=== PATIENT | female | born 1950 | race Caucasian/White ===

== ENCOUNTER 2020-07-04 09:38 | Inpatient (IN) | payer MEDICAID ==
[~2020-07-04] VITALS: Ht 165.1 cm; Wt 100.8 kg
[2020-07-04] MEDS ORDERED: SODIUM CHLORIDE 0.9% 1000ML BAG (SEPSIS BOLUS) IV ONE (10:15)
[2020-07-04 10:31] LABS: BG BASE EXCESS -4.8 mmol/L (-2.0-2.0); BG CARBOXYHEMOGLOBIN 0.3 % (0.5-1.5); BG DEOXYHEMOGLOBIN 5.2 % (0.0-5.0); BG FRACTION INSPIRED OXYGEN 21; BG HCO3 ACT 19.6 mmol/L (22.0-26.0); BG METHEMOGLOBIN 0.4 % (0.0-1.5); BG OXYGEN SATURATION 94.8 % (92.0-98.5); BG OXYHEMOGLOBIN 94.1 % (94.0-97.0); BG PCO2 32.9 mmHg (35.0-45.0); BG PH 7.393 (7.350-7.450); BG PO2 79.3 mmHg (75.0-100.0); BG SAMPLE SITE RIGHT RADIAL; BG TOTAL HEMOGLOBIN 7.2 g/dL (12.0-18.0); BG VENT MODE ROOM AIR
[2020-07-04 10:47] LABS: BASOPHILS % 0.7 % (0.0-2.0); EOSINOPHILS % 0.4 % (0.0-5.0); LYMPHOCYTES % 20.1 % (20.0-50.0); MEAN CORPUSCULAR HEMOGLOBIN 29.4 pg (28.0-32.0); MEAN CORPUSCULAR VOLUME 90.4 fL (81.0-99.0); MEAN PLATELET VOLUME 7.2 fl (7.4-10.4); NEUTROPHILS % 71.8 % (40.0-76.0); PLATELET 392 x1000/uL (130-400); RED BLOOD CELL COUNT 2.27 mill/uL (4.2-5.4); RED CELL DISTRIBUTION WIDTH 13.9 % (11.6-14.6)
[2020-07-04 10:48] LABS: HEMATOCRIT. 20.5 % (36.0-48.0); HEMOGLOBIN. 6.7 g/dL (12.0-16.0)
[2020-07-04 10:52] LABS: CHLORIDE 103 mEq/L (98-107)
[2020-07-04 10:56] LABS: ETHANOL BLOOD 19 mg/dL
[2020-07-04 11:00] LABS: PROTHROMBIN TIME 10.6 sec (9.6-11.0)
[2020-07-04] MEDS ORDERED: PIPERACILLIN/TAZ 3.375G PREMIX 50 ML IV ONE (11:15)
[2020-07-04] MEDS ORDERED: MAGNESIUM/ALUMINUM HYDROXIDE/SIMETHICONE 30ML UDC PO PRN (11:30)
[2020-07-04] MEDS ORDERED: NITROGLYCERIN 0.4MG TABLET SL SL PRN (11:30)
[2020-07-04] MEDS ORDERED: KETOROLAC 15MG/ML VIAL IV PRN (11:30)
[2020-07-04] MEDS ORDERED: ACETAMINOPHEN 325MG TABLET PO PRN ×2 (11:30)
[2020-07-04] MEDS ORDERED: IPRATROPIUM/ALBUTEROL 0.5-3(2.5)MG/3ML NEB NEB PRN (11:30)
[2020-07-04] MEDS ORDERED: GUAIFENESIN 200MG/10ML SUGAR FREE UDC PO PRN (11:30)
[2020-07-04] MEDS ORDERED: NA PHOS,M-B/NA PHOS,DI-BA ENEMA 118ML PR PRN (11:30)
[2020-07-04] MEDS ORDERED: CLONIDINE 0.1MG TABLET PO PRN (11:30)
[2020-07-04] MEDS ORDERED: DOCUSATE SODIUM 100MG CAPSULE PO PRN (11:30)
[2020-07-04] MEDS ORDERED: ONDANSETRON HCL 4MG/2ML INJ IV PRN (11:30)
[2020-07-04 12:43] LABS: TOTAL IRON BINDING CAPACITY 364 ug/dL (250-450)
[2020-07-04] MEDS: PANTOPRAZOLE SODIUM 40 MG/VIAL IV SCH (12:46)
[2020-07-04] MEDS ORDERED: LEVOFLOXACIN 500MG PREMIX 100 ML IV SCH (13:00)
[2020-07-04] MEDS: DEXT 5%/LACTATED RINGERS 1,000 ML IV SCH (13:20)
[2020-07-04 14:43] LABS: CREATINE KINASE 46 IU/L (26-192)
[2020-07-04 14:44] LABS: CREATINE KINASE MB FRACTION 1.1 ng/mL (0.5-3.6)
[2020-07-04 14:52] LABS: COLOR URINE RED (YELLOW); KETONES URINE 1+ (NEGATIVE); LEUKOCYTE ESTERASE URINE 2+ (NEGATIVE); NITRITE URINE POSITIVE (NEGATIVE); OCCULT BLOOD URINE 3+ (NEGATIVE); PROTEIN URINE 4+ (NEGATIVE); SPECIFIC GRAVITY URINE 1.018 (1.005-1.030); UROBILINOGEN URINE 0.2 E.U./dL (0.2-1.0)
[2020-07-04 14:53] LABS: CLARITY URINE TURBID (CLEAR)
[2020-07-04 15:16] LABS: *AMPHETAMINES SCREEN URINE NEGATIVE (NEGATIVE); *BARBITURATES SCREEN URINE NEGATIVE (NEGATIVE); *BENZODIAZEPINES SCREEN URINE NEGATIVE (NEGATIVE); *COCAINE SCREEN URINE NEGATIVE (NEGATIVE)
[2020-07-04 15:17] LABS: CANNABINOID URINE SCREEN NEGATIVE (NEGATIVE); METHADONE URINE SCREEN NEGATIVE (NEGATIVE); OPIATES URINE SCREEN NEGATIVE (NEGATIVE)
[2020-07-04 15:19] LABS: PHENCYCLIDINE URINE SCREEN NEGATIVE (NEGATIVE)
[2020-07-04 16:41] LABS: BASOPHILS % 0.4 % (0.0-2.0); HEMATOCRIT. 24.1 % (36.0-48.0); LYMPHOCYTES % 7.8 % (20.0-50.0); MEAN CORPUSCULAR HEMOGLOBIN 29.8 pg (28.0-32.0); MEAN CORPUSCULAR VOLUME 89.5 fL (81.0-99.0); MEAN PLATELET VOLUME 7.2 fl (7.4-10.4); MONOCYTES % 5.7 % (2.0-8.0); NEUTROPHILS % 86.1 % (40.0-76.0); PLATELET 274 x1000/uL (130-400); RED BLOOD CELL COUNT 2.69 mill/uL (4.2-5.4)
[2020-07-04 21:01] LABS: FOLIC ACID (FOLATE) SERUM > 20.00 ng/mL (>5.38); VITAMIN B12 SERUM > 2000.0 pg/mL (211-911)
[2020-07-04 21:52] VITALS: BP_SYST 148; BP_SYST 157; BP_DIAS 43; BP_DIAS 78
[2020-07-04 23:52] VITALS: BP 170/58
[2020-07-05] VITALS (13 sets, daily range): BP systolic 106–186; BP diastolic 54–81
[2020-07-05 00:17] LABS: CREATINE KINASE 47 IU/L (26-192)
[2020-07-05 00:18] LABS: CREATINE KINASE MB FRACTION 1.1 ng/mL (0.5-3.6)
[2020-07-05] MEDS: DEXT 5%/LACTATED RINGERS 1,000 ML IV SCH ×2 (00:22→14:50)
[2020-07-05 00:36] LABS: HEMATOCRIT 24.7 % (36.0-48.0); HEMOGLOBIN 8.4 g/dL (12.0-16.0)
[2020-07-05] MEDS ORDERED: BIOTIN PO (03:26)
[2020-07-05] MEDS ORDERED: ZINC PO (03:26)
[2020-07-05] MEDS ORDERED: TRYPTOPHAN PO (03:26)
[2020-07-05] MEDS ORDERED: VIT D 3 PO (03:26)
[2020-07-05] MEDS ORDERED: ASCO-339 PO (03:26)
[2020-07-05] MEDS ORDERED: B COMPLEX PO (03:26)
[2020-07-05 07:01] LABS: BASOPHILS % 0.4 % (0.0-2.0); EOSINOPHILS % 0.3 % (0.0-5.0); HEMATOCRIT. 21.9 % (36.0-48.0); HEMOGLOBIN. 7.3 g/dL (12.0-16.0); LYMPHOCYTES % 13.3 % (20.0-50.0); MEAN CORPUSCULAR HEMOGLOBIN 29.7 pg (28.0-32.0); MEAN CORPUSCULAR VOLUME 89.1 fL (81.0-99.0); MONOCYTES % 10.5 % (2.0-8.0); NEUTROPHILS % 75.5 % (40.0-76.0); PLATELET 256 x1000/uL (130-400); RED BLOOD CELL COUNT 2.46 mill/uL (4.2-5.4)
[2020-07-05 07:26] LABS: CHLORIDE 108 mEq/L (98-107)
[2020-07-05 07:39] LABS: PHOSPHORUS 2.4 mg/dL (2.5-4.9)
[2020-07-05] MEDS ORDERED: CEFTRIAXONE 1 G PREMIX 50 ML IV SCH (09:00)
[2020-07-05] MEDS: PANTOPRAZOLE SODIUM 40 MG/VIAL IV SCH (10:58)
[2020-07-05] MEDS: CEFTRIAXONE 1,000 MG in DEXTROSE 5% WATER 50 ML IV SCH (10:59)
[2020-07-05] MEDS: IRON SUCROSE COMPLEX 100 MG/5 ML ML IV SCH (14:49)
[2020-07-05] MEDS ORDERED: LEVOFLOXACIN 500MG PREMIX 100 ML IV SCH (16:00)
[2020-07-05] MEDS: ZOLPIDEM TARTRATE 5MG TABLET PO PRN (20:57)
[2020-07-06] VITALS (18 sets, daily range): BP systolic 112–149; BP diastolic 48–87
[2020-07-06] MEDS: DEXT 5%/LACTATED RINGERS 1,000 ML IV SCH ×2 (03:45→16:18)
[2020-07-06] MEDS ORDERED: MIDAZOLAM HCL 2 MG/2 ML VIAL ONE (07:24)
[2020-07-06] MEDS ORDERED: PROPOFOL 200MG/20ML VIAL IV ONE ×2 (07:24→08:17)
[2020-07-06] MEDS ORDERED: FENTANYL CITRATE/PF 50MCG/ML 2ML VIAL ONE (07:24)
[2020-07-06] MEDS ORDERED: DEXAMETHASONE 4MG/ML 1ML VIAL ONE (07:55)
[2020-07-06] MEDS ORDERED: ONDANSETRON HCL 4MG/2ML INJ ONE (08:17)
[2020-07-06] MEDS ORDERED: LABETALOL 5MG/ML SYR 20 MG/4 ML SYRINGE IV PRN (08:30)
[2020-07-06] MEDS ORDERED: MEPERIDINE HCL/PF 25MG/ML CPJ IV PRN (08:30)
[2020-07-06] MEDS ORDERED: HYDROMORPHONE HCL/PF 2MG/ML CPJ IV PRN (08:30)
[2020-07-06] MEDS ORDERED: ONDANSETRON HCL 4MG/2ML INJ IV PRN (08:30)
[2020-07-06] MEDS: PANTOPRAZOLE SODIUM 40 MG/VIAL IV SCH (08:47)
[2020-07-06] MEDS: IRON SUCROSE COMPLEX 100 MG/5 ML ML IV SCH (09:00)
[2020-07-06 11:52] LABS: HEMATOCRIT 22.3 % (36.0-48.0); HEMOGLOBIN 7.2 g/dL (12.0-16.0)
[2020-07-06] MEDS: CEFTRIAXONE 1,000 MG in DEXTROSE 5% WATER 50 ML IV SCH (11:57)
[2020-07-06] MEDS: ZOLPIDEM TARTRATE 5MG TABLET PO PRN (21:15)
[2020-07-06] MEDS: LEVOFLOXACIN 500MG PREMIX 100 ML IV SCH (21:15)
[2020-07-07] VITALS (15 sets, daily range): BP systolic 111–174; BP diastolic 40–82
[2020-07-07 00:25] LABS: HEMATOCRIT 21.7 % (36.0-48.0)
[2020-07-07] MEDS: DEXT 5%/LACTATED RINGERS 1,000 ML IV SCH ×2 (05:50→19:49)
[2020-07-07 08:31] LABS: HEMATOCRIT 23.3 % (36.0-48.0); HEMOGLOBIN 7.7 g/dL (12.0-16.0)
[2020-07-07] MEDS: PANTOPRAZOLE SODIUM 40 MG/VIAL IV SCH (09:35)
[2020-07-07] MEDS: IRON SUCROSE COMPLEX 100 MG/5 ML ML IV SCH (09:35)
[2020-07-07] MEDS: CEFTRIAXONE 1,000 MG in DEXTROSE 5% WATER 50 ML IV SCH (10:54)
[2020-07-07] MEDS: LORAZEPAM 0.5MG TABLET PO PRN (10:54)
[2020-07-07 11:55] LABS: HEMATOCRIT 25.8 % (36.0-48.0); HEMOGLOBIN 8.3 g/dL (12.0-16.0)
[2020-07-07] MEDS: LEVOFLOXACIN 500MG PREMIX 100 ML IV SCH (16:44)
[2020-07-07] MEDS: ZOLPIDEM TARTRATE 5MG TABLET PO PRN (21:50)
[2020-07-08] VITALS (12 sets, daily range): BP systolic 122–167; BP diastolic 62–99
[2020-07-08 06:51] LABS: HEMATOCRIT 25.7 % (36.0-48.0); HEMOGLOBIN 8.2 g/dL (12.0-16.0)
[2020-07-08] MEDS: DEXT 5%/LACTATED RINGERS 1,000 ML IV SCH (09:05)
[2020-07-08] MEDS: PANTOPRAZOLE SODIUM 40 MG/VIAL IV SCH (09:05)
[2020-07-08] MEDS: LORAZEPAM 0.5MG TABLET PO PRN (09:22)
[2020-07-08] MEDS: CEFTRIAXONE 1,000 MG in DEXTROSE 5% WATER 50 ML IV SCH (11:07)
[2020-07-08] MEDS: ZOLPIDEM TARTRATE 5MG TABLET PO PRN (21:51)
[2020-07-09] VITALS (10 sets, daily range): BP systolic 115–157; BP diastolic 56–82
[2020-07-09] MEDS: PANTOPRAZOLE SODIUM 40 MG/VIAL IV SCH (08:43)
[2020-07-09] MEDS: AMLODIPINE 5MG TABLET PO SCH (08:44)
[2020-07-09] MEDS: CEFTRIAXONE 1,000 MG in DEXTROSE 5% WATER 50 ML IV SCH (12:18)
[2020-07-09] MEDS: ZOLPIDEM TARTRATE 5MG TABLET PO PRN (22:05)
[2020-07-10 00:04] VITALS: BP 118/59
[2020-07-10 08:00] VITALS: BP 153/74
[2020-07-10] MEDS: PANTOPRAZOLE SODIUM 40 MG/VIAL IV SCH (08:44)
[2020-07-10] MEDS: AMLODIPINE 5MG TABLET PO SCH (08:44)
[2020-07-10 12:00] VITALS: BP 153/70
[2020-07-10 13:39] VITALS: BP 133/70
== END 2020-07-10 15:15 | disposition home or self-care (01) | DRG 446 ==
LOC: ER 09:38 → 3WST 11:07 → ENRESERV 19:36 → 3WST 07-08 22:09 → 6EST 07-10 01:55
PROVIDERS: ADMIT Internal Medicine; ATTEND Internal Medicine
PROC: 02HV33Z Insertion of Infusion Device into Superior Vena Cava, Percutaneous Approach (ICD-10-PCS; 2020-07-04)
PROC: B548ZZA Ultrasonography of Superior Vena Cava, Guidance (ICD-10-PCS; 2020-07-04)
PROC: 30233M1 Transfusion of Nonautologous Plasma Cryoprecipitate into Peripheral Vein, Percutaneous Approach (ICD-10-PCS; 2020-07-04)
PROC: 30233N1 Transfusion of Nonautologous Red Blood Cells into Peripheral Vein, Percutaneous Approach (ICD-10-PCS; 2020-07-05)
PROC: 0TBB8ZZ Excision of Bladder, Via Natural or Artificial Opening Endoscopic (ICD-10-PCS; principal; 2020-07-06)
PROC: 0T7D8ZZ Dilation of Urethra, Via Natural or Artificial Opening Endoscopic (ICD-10-PCS; 2020-07-06)
PROC: 0TCB8ZZ Extirpation of Matter from Bladder, Via Natural or Artificial Opening Endoscopic (ICD-10-PCS; 2020-07-06)
DX: C67.9 Malignant neoplasm of bladder, unspecified (principal); A41.9 Sepsis, unspecified organism; R57.8 Other shock; R57.1 Hypovolemic shock; E44.1 Mild protein-calorie malnutrition; E83.51 Hypocalcemia; F10.10 Alcohol abuse, uncomplicated; D63.0 Anemia in neoplastic disease; N13.30 Unspecified hydronephrosis; R65.20 Severe sepsis without septic shock; G90.8 Other disorders of autonomic nervous system; Y90.9 Presence of alcohol in blood, level not specified; I44.7 Left bundle-branch block, unspecified; I10 Essential (primary) hypertension; Z20.822 Contact with and (suspected) exposure to COVID-19; R31.0 Gross hematuria; D62 Acute posthemorrhagic anemia
CPT/HCPCS: 36415; 36600; 71045; 74176; 76856; 76937; 80053; 80305; 80320; 81003; 82375; 82550; 82553; 82607; 82746; 82805; 83540; 83550; 83605; 83735; 83880; 84100; 84145; 84484; 85014; 85018; 85025; 85379; 86850; 86900; 86920; 86927; 87426; 88307; 93005; 93306; 93970; 99291; A6261; C1725; C9113; J0696; J1100; J1956; J2250; J2405; J2543; J2704; J3010; J7030; J7040; J7060; P9016; P9017; P9021; G0480

== ENCOUNTER 2020-12-28 13:11 | Inpatient (IN) | payer OTHER ==
[~2020-12-28] VITALS: Ht 165.1 cm; Wt 90.7 kg
[~2020-12-28 13:11] MED LIST: ASCO-339 PO; ATOR20TA65 MT; B COMPLEX PO; BIOTIN PO; TRYPTOPHAN PO; VIT D 3 PO; ZINC PO
[2020-12-28 14:58] LABS: BASOPHILS % 0.7 % (0.0-2.0); EOSINOPHILS % 0.6 % (0.0-5.0); LYMPHOCYTES % 8.3 % (20.0-50.0); MEAN CORPUSCULAR HEMOGLOBIN 25.3 pg (28.0-32.0); MEAN CORPUSCULAR VOLUME 80.6 fL (81.0-99.0); MEAN PLATELET VOLUME 7.3 fl (7.4-10.4); MONOCYTES % 5.7 % (2.0-8.0); NEUTROPHILS % 84.7 % (40.0-76.0); PLATELET 583 x1000/uL (130-400); RED BLOOD CELL COUNT 2.11 mill/uL (4.2-5.4); RED CELL DISTRIBUTION WIDTH 16.8 % (11.6-14.6)
[2020-12-28 15:06] LABS: PROTHROMBIN TIME 10.6 sec (9.6-11.0)
[2020-12-28 15:07] LABS: CHLORIDE 107 mEq/L (98-107)
[2020-12-28 15:08] LABS: HEMOGLOBIN. 5.4 g/dL (12.0-16.0)
[2020-12-28 15:40] LABS: CLARITY URINE TURBID (CLEAR); COLOR URINE RED (YELLOW); KETONES URINE 2+ (NEGATIVE); LEUKOCYTE ESTERASE URINE 2+ (NEGATIVE); NITRITE URINE POSITIVE (NEGATIVE); OCCULT BLOOD URINE 3+ (NEGATIVE); PH URINE 5.5 (4.5-8.0); PROTEIN URINE 3+ (NEGATIVE); UROBILINOGEN URINE 0.2 E.U./dL (0.2-1.0)
[2020-12-28] MEDS ORDERED: CEFTRIAXONE 1 G PREMIX 50 ML IV ONE (16:15)
[2020-12-28] MEDS ORDERED: DOCUSATE SODIUM 100MG CAPSULE PO PRN (18:45)
[2020-12-28] MEDS ORDERED: IPRATROPIUM/ALBUTEROL 0.5-3(2.5)MG/3ML NEB HHN PRN (18:45)
[2020-12-28] MEDS ORDERED: HYDROCODONE/ACETAMINOPHEN 5/325MG TABLET PO PRN (18:45)
[2020-12-28] MEDS ORDERED: CLONIDINE 0.1MG TABLET PO PRN (18:45)
[2020-12-28] MEDS ORDERED: ONDANSETRON HCL 4MG/2ML INJ IV PRN (18:45)
[2020-12-28 20:44] VITALS: BP 153/74
[2020-12-28] MEDS: ACETAMINOPHEN 325MG TABLET PO PRN (20:54)
[2020-12-28 22:11] VITALS: BP 148/79
[2020-12-28 22:44] VITALS: BP 126/68
[2020-12-29] VITALS (17 sets, daily range): BP systolic 131–158; BP diastolic 64–94
[2020-12-29 07:24] LABS: BASOPHILS % 0.2 % (0.0-2.0); HEMATOCRIT. 23.5 % (36.0-48.0); LYMPHOCYTES % 7.2 % (20.0-50.0); MEAN CORPUSCULAR HEMOGLOBIN 26.7 pg (28.0-32.0); MEAN CORPUSCULAR VOLUME 80.6 fL (81.0-99.0); MEAN PLATELET VOLUME 7.1 fl (7.4-10.4); MONOCYTES % 12.6 % (2.0-8.0); PLATELET 471 x1000/uL (130-400); RED BLOOD CELL COUNT 2.92 mill/uL (4.2-5.4)
[2020-12-29 07:41] LABS: HEMOGLOBIN. 7.8 g/dL (12.0-16.0)
[2020-12-29] MEDS ORDERED: NALOXONE HCL 0.4MG/ML VIAL IV PRN (13:00)
[2020-12-29] MEDS: ACETAMINOPHEN 325MG TABLET PO PRN ×2 (14:44→22:25)
[2020-12-29] MEDS ORDERED: ZOLPIDEM TARTRATE 5MG TABLET PO PRN (16:45)
[2020-12-29] MEDS: CEFTRIAXONE 1,000 MG in DEXTROSE 5% WATER 50 ML IV SCH (16:46)
[2020-12-29 19:30] LABS: HEMATOCRIT 21.7 % (36.0-48.0); HEMOGLOBIN 7.4 g/dL (12.0-16.0)
[2020-12-29] MEDS ORDERED: VANCOMYCIN 1500MG in DEXTROSE 5% WATER 250ML IV SCH (20:00)
[2020-12-30] VITALS (28 sets, daily range): BP systolic 109–175; BP diastolic 58–104
[2020-12-30 07:12] LABS: HEMATOCRIT 25.6 % (36.0-48.0); HEMOGLOBIN 8.6 g/dL (12.0-16.0)
[2020-12-30] MEDS: ACETAMINOPHEN 325MG TABLET PO PRN ×2 (11:25→21:11)
[2020-12-30 12:08] LABS: HEMATOCRIT 24.7 % (36.0-48.0); HEMOGLOBIN 8.4 g/dL (12.0-16.0)
[2020-12-30] MEDS ORDERED: LIDOCAINE HCL 1% 20ML VIAL (Pyxis) INJ ONE (15:12)
[2020-12-30] MEDS ORDERED: FENTANYL CITRATE/PF 50MCG/ML 2ML VIAL ONE (15:13)
[2020-12-30] MEDS ORDERED: IOHEXOL-300 100 ML BOTTLE ONE (15:13)
[2020-12-30] MEDS ORDERED: MIDAZOLAM HCL 2 MG/2 ML VIAL ONE (15:14)
[2020-12-30] MEDS ORDERED: CEFAZOLIN 1000MG PREMIX 0 ML IV ONE (15:14)
[2020-12-30] MEDS ORDERED: FENTANYL CITRATE/PF 50MCG/ML 2ML VIAL IV NR (16:15)
[2020-12-30] MEDS: CEFTRIAXONE 1,000 MG in DEXTROSE 5% WATER 50 ML IV SCH (17:10)
[2020-12-30] MEDS: AMPICILLIN SOD/SULBACTAM NA 3 G in SODIUM CHLORIDE 0.9% 100 ML IV SCH (19:49)
[2020-12-30 20:31] LABS: HEMATOCRIT 23.3 % (36.0-48.0); HEMOGLOBIN 8.1 g/dL (12.0-16.0)
[2020-12-30] MEDS: LORAZEPAM 0.5MG TABLET PO PRN (21:11)
[2020-12-31] VITALS (12 sets, daily range): BP systolic 110–156; BP diastolic 45–79
[2020-12-31 06:28] LABS: BASOPHILS % 0.5 % (0.0-2.0); EOSINOPHILS % 1.4 % (0.0-5.0); HEMOGLOBIN. 7.7 g/dL (12.0-16.0); LYMPHOCYTES % 10.6 % (20.0-50.0); MEAN CORPUSCULAR HEMOGLOBIN 27.4 pg (28.0-32.0); MEAN CORPUSCULAR VOLUME 82.3 fL (81.0-99.0); MEAN PLATELET VOLUME 7.3 fl (7.4-10.4); NEUTROPHILS % 77.5 % (40.0-76.0); PLATELET 446 x1000/uL (130-400)
[2020-12-31] MEDS: AMPICILLIN SOD/SULBACTAM NA 3 G in SODIUM CHLORIDE 0.9% 100 ML IV SCH ×2 (07:51→19:38)
[2020-12-31] MEDS ORDERED: VANCOMYCIN 1 G PREMIX 200 ML IV SCH (08:00)
[2020-12-31] MEDS: ACETAMINOPHEN 325MG TABLET PO PRN ×2 (11:56→22:12)
[2020-12-31] MEDS: LORAZEPAM 0.5MG TABLET PO PRN (21:38)
[2021-01-01] VITALS (16 sets, daily range): BP systolic 111–157; BP diastolic 42–96
[2021-01-01 07:22] LABS: BASOPHILS % 0.4 % (0.0-2.0); EOSINOPHILS % 3.8 % (0.0-5.0); LYMPHOCYTES % 14.3 % (20.0-50.0); MEAN CORPUSCULAR HEMOGLOBIN 27.1 pg (28.0-32.0); MEAN CORPUSCULAR VOLUME 82.5 fL (81.0-99.0); MEAN PLATELET VOLUME 7.2 fl (7.4-10.4); MONOCYTES % 11.2 % (2.0-8.0); NEUTROPHILS % 70.3 % (40.0-76.0); PLATELET 445 x1000/uL (130-400); RED CELL DISTRIBUTION WIDTH 17.1 % (11.6-14.6)
[2021-01-01] MEDS: AMPICILLIN SOD/SULBACTAM NA 3 G in SODIUM CHLORIDE 0.9% 100 ML IV SCH ×2 (07:54→21:04)
[2021-01-01 09:29] LABS: HEMATOCRIT. 20.6 % (36.0-48.0); HEMOGLOBIN. 6.8 g/dL (12.0-16.0)
[2021-01-01] MEDS ORDERED: AMOX-494 MT ×2 (20:41)
[2021-01-01] MEDS: LORAZEPAM 0.5MG TABLET PO PRN (21:42)
[2021-01-02] VITALS (15 sets, daily range): BP systolic 119–160; BP diastolic 56–95
[2021-01-02 07:27] LABS: BASOPHILS % 0.7 % (0.0-2.0); EOSINOPHILS % 6.2 % (0.0-5.0); HEMATOCRIT. 21.7 % (36.0-48.0); HEMOGLOBIN. 7.5 g/dL (12.0-16.0); LYMPHOCYTES % 14.2 % (20.0-50.0); MEAN CORPUSCULAR HEMOGLOBIN 28.4 pg (28.0-32.0); MEAN CORPUSCULAR VOLUME 82.3 fL (81.0-99.0); MONOCYTES % 12.7 % (2.0-8.0); NEUTROPHILS % 66.2 % (40.0-76.0); PLATELET 444 x1000/uL (130-400); RED BLOOD CELL COUNT 2.63 mill/uL (4.2-5.4); RED CELL DISTRIBUTION WIDTH 16.7 % (11.6-14.6)
[2021-01-02] MEDS: AMPICILLIN SOD/SULBACTAM NA 3 G in SODIUM CHLORIDE 0.9% 100 ML IV SCH ×2 (07:48→20:50)
[2021-01-02] MEDS: ACETAMINOPHEN 325MG TABLET PO PRN ×2 (17:17→23:09)
[2021-01-02] MEDS ORDERED: LORAZEPAM 0.5MG TABLET PO PRN (21:15)
[2021-01-03 04:00] VITALS: BP 143/70
[2021-01-03 07:16] LABS: BASOPHILS % 0.5 % (0.0-2.0); EOSINOPHILS % 5.1 % (0.0-5.0); HEMATOCRIT. 22.2 % (36.0-48.0); HEMOGLOBIN. 7.4 g/dL (12.0-16.0); LYMPHOCYTES % 14.2 % (20.0-50.0); MEAN CORPUSCULAR HEMOGLOBIN 27.7 pg (28.0-32.0); MEAN CORPUSCULAR VOLUME 82.7 fL (81.0-99.0); MEAN PLATELET VOLUME 6.6 fl (7.4-10.4); MONOCYTES % 10.4 % (2.0-8.0); NEUTROPHILS % 69.8 % (40.0-76.0); PLATELET 438 x1000/uL (130-400); RED BLOOD CELL COUNT 2.68 mill/uL (4.2-5.4); RED CELL DISTRIBUTION WIDTH 17.4 % (11.6-14.6)
[2021-01-03] MEDS: AMPICILLIN SOD/SULBACTAM NA 3 G in SODIUM CHLORIDE 0.9% 100 ML IV SCH ×2 (08:54→21:09)
[2021-01-03] MEDS: ACETAMINOPHEN 325MG TABLET PO PRN (17:55)
[2021-01-04 04:00] VITALS: BP 109/51
[2021-01-04] MEDS: AMPICILLIN SOD/SULBACTAM NA 3 G in SODIUM CHLORIDE 0.9% 100 ML IV SCH ×2 (09:22→22:03)
[2021-01-04 11:28] LABS: BASOPHILS % 0.8 % (0.0-2.0); EOSINOPHILS % 3.6 % (0.0-5.0); HEMATOCRIT. 23.5 % (36.0-48.0); HEMOGLOBIN. 7.8 g/dL (12.0-16.0); LYMPHOCYTES % 12.5 % (20.0-50.0); MEAN CORPUSCULAR HEMOGLOBIN 28.6 pg (28.0-32.0); MEAN CORPUSCULAR VOLUME 85.7 fL (81.0-99.0); MONOCYTES % 9.7 % (2.0-8.0); NEUTROPHILS % 73.4 % (40.0-76.0); PLATELET 479 x1000/uL (130-400); RED BLOOD CELL COUNT 2.74 mill/uL (4.2-5.4); RED CELL DISTRIBUTION WIDTH 17.7 % (11.6-14.6)
[2021-01-04] MEDS ORDERED: AM250 PO ×2 (18:14)
[2021-01-04] MEDS ORDERED: LORA-249 MT (18:14)
[2021-01-04 20:00] VITALS: BP 120/53
[2021-01-04] MEDS ORDERED: LORAZEPAM 0.5MG TABLET PO PRN (21:00)
[2021-01-05] VITALS (9 sets, daily range): BP systolic 115–147; BP diastolic 50–60
[2021-01-05] MEDS: AMPICILLIN SOD/SULBACTAM NA 3 G in SODIUM CHLORIDE 0.9% 100 ML IV SCH ×2 (05:59→14:00)
[2021-01-05 06:26] LABS: BASOPHILS % 0.8 % (0.0-2.0); HEMATOCRIT. 21.7 % (36.0-48.0); LYMPHOCYTES % 17.7 % (20.0-50.0); MEAN CORPUSCULAR HEMOGLOBIN 27.1 pg (28.0-32.0); MEAN CORPUSCULAR VOLUME 84.3 fL (81.0-99.0); MEAN PLATELET VOLUME 6.8 fl (7.4-10.4); MONOCYTES % 9.7 % (2.0-8.0); NEUTROPHILS % 67.8 % (40.0-76.0); PLATELET 524 x1000/uL (130-400); RED BLOOD CELL COUNT 2.57 mill/uL (4.2-5.4); RED CELL DISTRIBUTION WIDTH 17.8 % (11.6-14.6)
== END 2021-01-05 15:07 | disposition home health service (06) | DRG 720 ==
LOC: ER 14:37 → 3WST 18:07 → EDBEDREQTM 18:29 → ENRESERV 19:27 → 6EST 01-02 23:56
PROVIDERS: ADMIT Internal Medicine; ATTEND Internal Medicine
PROC: 30233N1 Transfusion of Nonautologous Red Blood Cells into Peripheral Vein, Percutaneous Approach (ICD-10-PCS; principal; 2020-12-28)
PROC: 0T9430Z Drainage of Left Kidney Pelvis with Drainage Device, Percutaneous Approach (ICD-10-PCS; 2020-12-30)
PROC: 0T9330Z Drainage of Right Kidney Pelvis with Drainage Device, Percutaneous Approach (ICD-10-PCS; 2020-12-30)
DX: A41.9 Sepsis, unspecified organism (principal); N17.0 Acute kidney failure with tubular necrosis; E44.1 Mild protein-calorie malnutrition; C67.9 Malignant neoplasm of bladder, unspecified; N13.6 Pyonephrosis; D63.0 Anemia in neoplastic disease; D50.0 Iron deficiency anemia secondary to blood loss (chronic); I12.9 Hypertensive chronic kidney disease with stage 1 through stage 4 chronic kidney disease, or unspecified chronic kidney disease; I44.7 Left bundle-branch block, unspecified; R31.9 Hematuria, unspecified; N18.9 Chronic kidney disease, unspecified; B95.2 Enterococcus as the cause of diseases classified elsewhere; Z20.822 Contact with and (suspected) exposure to COVID-19; K57.90 Diverticulosis of intestine, part unspecified, without perforation or abscess without bleeding; Z85.51 Personal history of malignant neoplasm of bladder; Z68.33 Body mass index [BMI] 33.0-33.9, adult
CPT/HCPCS: 36415; 50432; 71045; 74176; 80048; 80053; 81003; 83880; 84145; 84484; 85014; 85018; 85025; 86850; 86900; 86920; 87077; 87186; 87426; 93005; 97161; 99152; 99153; 99291; C1729; C1760; C1769; J0295; J0690; J0696; J2250; J3010; J3370; J3490; J7040; J7050; J7060; P9016; Q9967; G0500

== ENCOUNTER 2021-01-23 11:34 | Emergency (ER) | payer OTHER ==
[~2021-01-23] VITALS: Ht 167.6 cm; Wt 65.0 kg
[~2021-01-23 11:34] MED LIST changes: +LORA-249 MT
[2021-01-23 13:22] LABS: BASOPHILS % 1.3 % (0.0-2.0); EOSINOPHILS % 2.7 % (0.0-5.0); LYMPHOCYTES % 25.3 % (20.0-50.0); MEAN CORPUSCULAR HEMOGLOBIN 28.1 pg (28.0-32.0); MEAN CORPUSCULAR VOLUME 87.7 fL (81.0-99.0); MEAN PLATELET VOLUME 6.9 fl (7.4-10.4); MONOCYTES % 7.7 % (2.0-8.0); PLATELET 423 x1000/uL (130-400); RED BLOOD CELL COUNT 2.08 mill/uL (4.2-5.4); RED CELL DISTRIBUTION WIDTH 16.8 % (11.6-14.6)
[2021-01-23 13:23] LABS: CHLORIDE 105 mEq/L (98-107)
[2021-01-23 13:28] LABS: HEMATOCRIT. 18.2 % (36.0-48.0); HEMOGLOBIN. 5.8 g/dL (12.0-16.0)
[2021-01-23 13:41] LABS: INR 1.1; PROTHROMBIN TIME 12.1 sec (9.6-11.0)
[2021-01-23 14:36] LABS: CLARITY URINE CLEAR (CLEAR); COLOR URINE YELLOW (YELLOW); KETONES URINE NEGATIVE (NEGATIVE); LEUKOCYTE ESTERASE URINE NEGATIVE (NEGATIVE); NITRITE URINE NEGATIVE (NEGATIVE); OCCULT BLOOD URINE NEGATIVE (NEGATIVE); PROTEIN URINE NEGATIVE (NEGATIVE); SPECIFIC GRAVITY URINE 1.003 (1.005-1.030); UROBILINOGEN URINE 0.2 E.U./dL (0.2-1.0)
[2021-01-23 21:07] VITALS: BP 132/63
== END 2021-01-23 21:30 | disposition home or self-care (01) ==
LOC: ER 11:34 → CANBEDREQ 23:10
DX: D64.9 Anemia, unspecified (principal); Z93.6 Other artificial openings of urinary tract status; Z85.51 Personal history of malignant neoplasm of bladder
CPT/HCPCS: 36415; 80053; 81003; 85025; 86850; 86900; 86920; 99285; P9016

== ENCOUNTER 2021-02-28 13:44 | Inpatient (IN) | payer OTHER ==
[~2021-02-28] VITALS: Ht 172.7 cm; Wt 72.6 kg
[2021-02-28] MEDS ORDERED: LIDOCAINE HCL 1% 20ML VIAL (Pyxis) INJ INFIL ONE (14:45)
[2021-02-28] MEDS ORDERED: LIDOCAINE HCL 1% 30ML VIAL (10MG/ML) INFIL NR (14:45)
[2021-02-28 15:05] LABS: BASOPHILS % 0.6 % (0.0-2.0); EOSINOPHILS % 2.5 % (0.0-5.0); MEAN CORPUSCULAR HEMOGLOBIN 25.2 pg (28.0-32.0); MEAN PLATELET VOLUME 6.1 fl (7.4-10.4); MONOCYTES % 7.6 % (2.0-8.0); NEUTROPHILS % 73.3 % (40.0-76.0); PLATELET 975 x1000/uL (130-400); RED BLOOD CELL COUNT 1.99 mill/uL (4.2-5.4); RED CELL DISTRIBUTION WIDTH 21.8 % (11.6-14.6)
[2021-02-28 15:12] LABS: HEMATOCRIT. 15.4 % (36.0-48.0)
[2021-02-28 15:15] LABS: CHLORIDE 108 mEq/L (98-107)
[2021-02-28] MEDS ORDERED: HYDROCODONE/ACETAMINOPHEN 10/325MG TABLET PO PRN (23:00)
[2021-02-28] MEDS ORDERED: NALOXONE HCL 0.4MG/ML VIAL IV PRN (23:00)
[2021-02-28] MEDS ORDERED: ONDANSETRON HCL 4MG/2ML INJ IV PRN (23:00)
[2021-03-01] VITALS (8 sets, daily range): BP systolic 131–168; BP diastolic 44–91
[2021-03-01] MEDS ORDERED: OMEPRAZOLE 20MG CAPSULE EXTENDED RELEASE PO SCH (06:40)
[2021-03-01] MEDS ORDERED: DOCUSATE SODIUM 100MG CAPSULE PO PRN (08:15)
[2021-03-01] MEDS ORDERED: MAGNESIUM/ALUMINUM HYDROXIDE/SIMETHICONE 30ML UDC PO PRN (08:15)
[2021-03-01] MEDS ORDERED: ACETAMINOPHEN 325MG TABLET PO PRN (08:15)
[2021-03-01] MEDS ORDERED: CLONIDINE 0.1MG TABLET PO PRN (08:15)
[2021-03-01 08:57] LABS: CLARITY URINE CLOUDY (CLEAR); COLOR URINE YELLOW (YELLOW); KETONES URINE NEGATIVE (NEGATIVE); LEUKOCYTE ESTERASE URINE 3+ (NEGATIVE); NITRITE URINE POSITIVE (NEGATIVE); OCCULT BLOOD URINE 1+ (NEGATIVE); PH URINE 6.5 (4.5-8.0); PROTEIN URINE 1+ (NEGATIVE); SPECIFIC GRAVITY URINE 1.006 (1.005-1.030); UROBILINOGEN URINE 0.2 E.U./dL (0.2-1.0)
[2021-03-01 10:20] LABS: EOSINOPHILS % 2.7 % (0.0-5.0); HEMATOCRIT. 23.4 % (36.0-48.0); HEMOGLOBIN. 7.7 g/dL (12.0-16.0); LYMPHOCYTES % 14.7 % (20.0-50.0); MEAN CORPUSCULAR VOLUME 78.6 fL (81.0-99.0); MEAN PLATELET VOLUME 6.3 fl (7.4-10.4); MONOCYTES % 7.9 % (2.0-8.0); NEUTROPHILS % 73.7 % (40.0-76.0); PLATELET 800 x1000/uL (130-400); RED BLOOD CELL COUNT 2.98 mill/uL (4.2-5.4); RED CELL DISTRIBUTION WIDTH 19.1 % (11.6-14.6)
[2021-03-01] MEDS ORDERED: SULF1TAB47 MT (12:04)
[2021-03-15] MEDS ORDERED: NITR100C MT (11:43)
[2021-03-15] MEDS ORDERED: LEVO750T46 MT (11:43)
[2021-03-15] MEDS ORDERED: LACT1CAP78 MT (11:43)
[2021-03-15] MEDS ORDERED: NEOM28.37 TP (11:51)
== END 2021-03-01 14:35 | disposition home or self-care (01) | DRG 663 ==
LOC: ER 13:44 → MICUSO 17:37 → 7EST 22:29
PROVIDERS: ADMIT Internal Medicine; ATTEND Internal Medicine
PROC: 30233N1 Transfusion of Nonautologous Red Blood Cells into Peripheral Vein, Percutaneous Approach (ICD-10-PCS; principal; 2021-02-28)
DX: D62 Acute posthemorrhagic anemia (principal); N17.9 Acute kidney failure, unspecified; E44.1 Mild protein-calorie malnutrition; N13.6 Pyonephrosis; E66.9 Obesity, unspecified; Z85.51 Personal history of malignant neoplasm of bladder; Z79.899 Other long term (current) drug therapy; Z68.24 Body mass index [BMI] 24.0-24.9, adult
CPT/HCPCS: 36415; 76770; 80048; 80053; 81003; 85025; 86850; 86900; 86920; 87077; 87186; 93005; 99291; J3490; J7040; P9016

== ENCOUNTER 2021-03-14 14:55 | Inpatient (IN) | payer OTHER ==
[~2021-03-14] VITALS: Ht 172.7 cm; Wt 79.0 kg
[~2021-03-14 14:55] MED LIST changes: -ASCO-339 PO; -ATOR20TA65 MT; -B COMPLEX PO; -BIOTIN PO; -LORA-249 MT; +SULF1TAB47 MT; -TRYPTOPHAN PO; -VIT D 3 PO; -ZINC PO
[2021-03-14] MEDS ORDERED: SODIUM CHLORIDE 0.9% 1,000 ML IV ONE (15:15)
[2021-03-14 15:46] LABS: BASOPHILS % 1.1 % (0.0-2.0); EOSINOPHILS % 3.7 % (0.0-5.0); MEAN CORPUSCULAR HEMOGLOBIN 24.9 pg (28.0-32.0); MEAN CORPUSCULAR VOLUME 77.1 fL (81.0-99.0); MEAN PLATELET VOLUME 6.9 fl (7.4-10.4); MONOCYTES % 9.2 % (2.0-8.0); PLATELET 566 x1000/uL (130-400); RED CELL DISTRIBUTION WIDTH 19.9 % (11.6-14.6)
[2021-03-14 15:51] LABS: HEMATOCRIT. 19.3 % (36.0-48.0); HEMOGLOBIN. 6.2 g/dL (12.0-16.0)
[2021-03-14 15:52] LABS: CHLORIDE 107 mEq/L (98-107)
[2021-03-14 15:55] LABS: PARTIAL THROMBOPLASTIN TIME 23.4 sec (23.4-31.0); PROTHROMBIN TIME 10.5 sec (9.6-11.0)
[2021-03-14 16:11] LABS: CLARITY URINE CLEAR (CLEAR); COLOR URINE RED (YELLOW); KETONES URINE NEGATIVE (NEGATIVE); LEUKOCYTE ESTERASE URINE 2+ (NEGATIVE); NITRITE URINE NEGATIVE (NEGATIVE); OCCULT BLOOD URINE 3+ (NEGATIVE); PH URINE 6.5 (4.5-8.0); PROTEIN URINE 3+ (NEGATIVE); SPECIFIC GRAVITY URINE 1.006 (1.005-1.030); UROBILINOGEN URINE 0.2 E.U./dL (0.2-1.0)
[2021-03-14] MEDS ORDERED: CEFTRIAXONE 1 G PREMIX 50 ML IV ONE (16:45)
[2021-03-14] MEDS ORDERED: ACETAMINOPHEN 325MG TABLET PO NR (20:00)
[2021-03-14] MEDS ORDERED: ACETAMINOPHEN 325MG TABLET PO PRN (23:00)
[2021-03-14] MEDS ORDERED: MORPHINE SULFATE 2 MG/ML CPJ (NOT FOR IM USE) IV PRN (23:00)
[2021-03-14] MEDS ORDERED: NALOXONE HCL 0.4 MG/ML 1ML VIAL IV PRN (23:30)
[2021-03-15] VITALS (8 sets, daily range): BP systolic 98–152; BP diastolic 45–65
[2021-03-15] MEDS: PIPERACILLIN/TAZOBACTAM 3.375 G in DEXTROSE 5% WATER 50 ML IV SCH ×3 (02:36→14:00)
[2021-03-15 06:54] LABS: BASOPHILS % 1.2 % (0.0-2.0); EOSINOPHILS % 3.2 % (0.0-5.0); HEMATOCRIT. 24.8 % (36.0-48.0); HEMOGLOBIN. 8.4 g/dL (12.0-16.0); MEAN CORPUSCULAR HEMOGLOBIN 27.1 pg (28.0-32.0); MEAN CORPUSCULAR VOLUME 80.3 fL (81.0-99.0); MEAN PLATELET VOLUME 7.1 fl (7.4-10.4); MONOCYTES % 9.9 % (2.0-8.0); NEUTROPHILS % 64.7 % (40.0-76.0); PLATELET 504 x1000/uL (130-400); RED BLOOD CELL COUNT 3.09 mill/uL (4.2-5.4); RED CELL DISTRIBUTION WIDTH 18.5 % (11.6-14.6)
[2021-03-15 09:15] LABS: HEMATOCRIT 26.3 % (36.0-48.0); HEMOGLOBIN 8.6 g/dL (12.0-16.0)
[2021-03-15] MEDS ORDERED: LEVO750T46 MT ×2 (11:43)
[2021-03-15] MEDS ORDERED: LACT1CAP78 MT ×2 (11:43)
[2021-03-15] MEDS ORDERED: NITR100C MT ×2 (11:43)
[2021-03-15] MEDS ORDERED: NEOM28.37 TP ×2 (11:51)
== END 2021-03-15 16:46 | disposition home health service (06) | DRG 463 ==
LOC: ER 14:55 → 7EST 17:36 → EDBEDREQTM 17:37 → EDBEDREQ 17:37 → ENRESERV 20:30 → CANBEDREQ 03-15 02:13
PROVIDERS: ADMIT Internal Medicine; ATTEND Internal Medicine
PROC: 30233N1 Transfusion of Nonautologous Red Blood Cells into Peripheral Vein, Percutaneous Approach (ICD-10-PCS; principal; 2021-03-14)
DX: N39.0 Urinary tract infection, site not specified (principal); E44.1 Mild protein-calorie malnutrition; D62 Acute posthemorrhagic anemia; Y84.6 Urinary catheterization as the cause of abnormal reaction of the patient, or of later complication, without mention of misadventure at the time of the procedure; R31.0 Gross hematuria; D64.9 Anemia, unspecified; E66.9 Obesity, unspecified; I10 Essential (primary) hypertension; Z85.51 Personal history of malignant neoplasm of bladder; Z87.440 Personal history of urinary (tract) infections; Z93.6 Other artificial openings of urinary tract status; Z79.899 Other long term (current) drug therapy; Z68.26 Body mass index [BMI] 26.0-26.9, adult; Y92.89 Other specified places as the place of occurrence of the external cause
CPT/HCPCS: 36415; 71045; 74176; 80048; 80053; 81003; 85014; 85018; 85025; 86850; 86900; 86920; 87077; 87186; 93005; 99291; J2543; J7030; J7040; J7060; P9016

== ENCOUNTER 2021-04-06 14:37 | Inpatient (IN) | payer OTHER ==
[~2021-04-06] VITALS: Ht 165.1 cm; Wt 80.3 kg
[~2021-04-06 14:37] MED LIST changes: +LACT1CAP78 MT; +LEVO750T46 MT; +NEOM28.37 TP; +NITR100C MT
[2021-04-06] MEDS ORDERED: SODIUM CHLORIDE 0.9% 1,000 ML IV ONE (15:30)
[2021-04-06 16:24] LABS: BASOPHILS % 0.9 % (0.0-2.0); EOSINOPHILS % 3.1 % (0.0-5.0); LYMPHOCYTES % 17.2 % (20.0-50.0); MEAN CORPUSCULAR HEMOGLOBIN 23.8 pg (28.0-32.0); MEAN CORPUSCULAR VOLUME 75.8 fL (81.0-99.0); MEAN PLATELET VOLUME 6.7 fl (7.4-10.4); MONOCYTES % 10.5 % (2.0-8.0); NEUTROPHILS % 68.3 % (40.0-76.0); PLATELET 537 x1000/uL (130-400); RED BLOOD CELL COUNT 1.45 mill/uL (4.2-5.4); RED CELL DISTRIBUTION WIDTH 20.4 % (11.6-14.6)
[2021-04-06 16:27] LABS: HEMOGLOBIN. 3.5 g/dL (12.0-16.0)
[2021-04-06 16:30] LABS: CHLORIDE 107 mEq/L (98-107)
[2021-04-06 16:58] LABS: CLARITY URINE CLEAR (CLEAR); COLOR URINE YELLOW (YELLOW); KETONES URINE NEGATIVE (NEGATIVE); LEUKOCYTE ESTERASE URINE 2+ (NEGATIVE); NITRITE URINE NEGATIVE (NEGATIVE); OCCULT BLOOD URINE NEGATIVE (NEGATIVE); PH URINE 6.5 (4.5-8.0); PROTEIN URINE NEGATIVE (NEGATIVE); SPECIFIC GRAVITY URINE 1.008 (1.005-1.030); UROBILINOGEN URINE 0.2 E.U./dL (0.2-1.0)
[2021-04-06] MEDS ORDERED: CEFTRIAXONE 1 G PREMIX 50 ML IV ONE (17:15)
[2021-04-07 01:35] VITALS: BP 141/54
[2021-04-07] MEDS ORDERED: ACETAMINOPHEN 325MG TABLET PO PRN (03:00)
[2021-04-07] MEDS ORDERED: HYDROCODONE/ACETAMINOPHEN 5/325MG TABLET PO PRN (03:00)
[2021-04-07] MEDS ORDERED: NALOXONE HCL 0.4MG/ML VIAL IV PRN (03:15)
[2021-04-07 04:00] VITALS: BP 141/57
[2021-04-07] MEDS: PIPERACILLIN/TAZOBACTAM 3.375 G in DEXTROSE 5% WATER 50 ML IV SCH ×2 (06:47→14:00)
[2021-04-07 08:00] VITALS: BP 156/61
[2021-04-07 10:45] LABS: HEMATOCRIT 24.1 % (36.0-48.0); HEMOGLOBIN 7.8 g/dL (12.0-16.0)
[2021-04-07 10:46] LABS: BASOPHILS % 0.5 % (0.0-2.0); EOSINOPHILS % 4.1 % (0.0-5.0); HEMOGLOBIN. 7.8 g/dL (12.0-16.0); LYMPHOCYTES % 12.6 % (20.0-50.0); MEAN CORPUSCULAR HEMOGLOBIN 27.1 pg (28.0-32.0); MEAN CORPUSCULAR VOLUME 82.9 fL (81.0-99.0); MEAN PLATELET VOLUME 6.7 fl (7.4-10.4); MONOCYTES % 9.2 % (2.0-8.0); NEUTROPHILS % 73.6 % (40.0-76.0); PLATELET 491 x1000/uL (130-400); RED BLOOD CELL COUNT 2.89 mill/uL (4.2-5.4); RED CELL DISTRIBUTION WIDTH 18.3 % (11.6-14.6)
[2021-04-07 10:56] LABS: CHLORIDE 111 mEq/L (98-107)
[2021-04-07 12:00] VITALS: BP 138/61
[2021-04-07 13:49] VITALS: BP 138/61
[2021-04-07 16:00] VITALS: BP 134/52
== END 2021-04-07 18:13 | disposition home or self-care (01) | DRG 663 ==
LOC: ER 14:48 → 6WST 18:28 → EDBEDREQ 19:43 → ENRESERV 04-07 00:03
PROVIDERS: ADMIT Internal Medicine; ATTEND Internal Medicine
PROC: 30233N1 Transfusion of Nonautologous Red Blood Cells into Peripheral Vein, Percutaneous Approach (ICD-10-PCS; principal; 2021-04-06)
DX: D64.9 Anemia, unspecified (principal); N17.0 Acute kidney failure with tubular necrosis; E43 Unspecified severe protein-calorie malnutrition; Z20.822 Contact with and (suspected) exposure to COVID-19; N39.0 Urinary tract infection, site not specified; Z85.51 Personal history of malignant neoplasm of bladder; Z87.440 Personal history of urinary (tract) infections; Z68.29 Body mass index [BMI] 29.0-29.9, adult
CPT/HCPCS: 36415; 71045; 80053; 81003; 84484; 85014; 85018; 85025; 86850; 86900; 86920; 87077; 87186; 87426; 93005; 99285; J0696; J2543; J7030; J7040; J7060; P9016

== ENCOUNTER 2021-06-08 14:05 | Inpatient (IN) | payer OTHER ==
[~2021-06-08] VITALS: Ht 162.6 cm; Wt 77.1 kg
[2021-06-08 17:44] LABS: MEAN CORPUSCULAR HEMOGLOBIN 22.8 pg (28.0-32.0); MEAN PLATELET VOLUME 7.8 fl (7.4-10.4); PLATELET 583 x1000/uL (130-400); RED BLOOD CELL COUNT 2.86 mill/uL (4.2-5.4)
[2021-06-08] MEDS ORDERED: ACETAMINOPHEN 325MG TABLET PO STA (17:48)
[2021-06-08 17:52] LABS: HEMATOCRIT. 20.9 % (36.0-48.0); HEMOGLOBIN. 6.5 g/dL (12.0-16.0)
[2021-06-08 17:53] LABS: CHLORIDE 104 mEq/L (98-107)
[2021-06-08 17:56] LABS: CLARITY URINE CLEAR (CLEAR); COLOR URINE YELLOW (YELLOW); KETONES URINE NEGATIVE (NEGATIVE); OCCULT BLOOD URINE NEGATIVE (NEGATIVE); PROTEIN URINE NEGATIVE (NEGATIVE); SPECIFIC GRAVITY URINE 1.006 (1.005-1.030)
[2021-06-08 17:57] LABS: LEUKOCYTE ESTERASE URINE 2+ (NEGATIVE); NITRITE URINE NEGATIVE (NEGATIVE); UROBILINOGEN URINE 0.2 E.U./dL (0.2-1.0)
[2021-06-08] MEDS ORDERED: PIPERACILLIN/TAZ 3.375G PREMIX 50 ML IV ONE (18:00)
[2021-06-08] MEDS ORDERED: SODIUM CHLORIDE 0.9% 1000ML BAG (SEPSIS BOLUS) IV ONE (18:00)
[2021-06-08 21:04] LABS: PLATELET ESTIMATE INCREASED
[2021-06-09] VITALS (11 sets, daily range): BP systolic 105–156; BP diastolic 54–87
[2021-06-09] MEDS ORDERED: ACETAMINOPHEN 650MG/20.3ML UDC PO PRN (03:00)
[2021-06-09] MEDS ORDERED: CLONIDINE 0.1MG TABLET PO PRN (03:00)
[2021-06-09] MEDS: ACETAMINOPHEN 325MG TABLET PO PRN ×3 (03:18→21:06)
[2021-06-09 05:48] LABS: MEAN CORPUSCULAR HEMOGLOBIN 23.4 pg (28.0-32.0); MEAN CORPUSCULAR VOLUME 74.2 fL (81.0-99.0); MEAN PLATELET VOLUME 7.8 fl (7.4-10.4); PLATELET 477 x1000/uL (130-400); RED BLOOD CELL COUNT 2.94 mill/uL (4.2-5.4); RED CELL DISTRIBUTION WIDTH 21.8 % (11.6-14.6)
[2021-06-09] MEDS: PIPERACILLIN/TAZOBACTAM 3.375 G in DEXTROSE 5% WATER 50 ML IV SCH ×3 (06:02→21:08)
[2021-06-09 06:40] LABS: HEMATOCRIT. 21.8 % (36.0-48.0); HEMOGLOBIN. 6.9 g/dL (12.0-16.0)
[2021-06-09 17:14] LABS: PROTHROMBIN TIME 11.1 sec (9.6-11.0)
[2021-06-09 18:50] LABS: HEMOGLOBIN 7.4 g/dL (12.0-16.0)
[2021-06-09] MEDS ORDERED: ONDANSETRON HCL 4MG/2ML INJ IV PRN (19:15)
[2021-06-09 21:16] LABS: PLATELET ESTIMATE INCREASED
[2021-06-10] VITALS: BP 121/66
[2021-06-10 04:00] VITALS: BP 118/59
[2021-06-10 05:29] LABS: HEMATOCRIT. 23.3 % (36.0-48.0); HEMOGLOBIN. 7.4 g/dL (12.0-16.0); MEAN CORPUSCULAR HEMOGLOBIN 24.1 pg (28.0-32.0); MEAN CORPUSCULAR VOLUME 75.5 fL (81.0-99.0); MEAN PLATELET VOLUME 7.8 fl (7.4-10.4); PLATELET 477 x1000/uL (130-400); RED BLOOD CELL COUNT 3.09 mill/uL (4.2-5.4); RED CELL DISTRIBUTION WIDTH 21.1 % (11.6-14.6)
[2021-06-10] MEDS: PIPERACILLIN/TAZOBACTAM 3.375 G in DEXTROSE 5% WATER 50 ML IV SCH ×2 (05:47→16:26)
[2021-06-10 08:00] VITALS: BP 140/74
[2021-06-10] MEDS: DOCUSATE SODIUM 250MG CAPSULE PO SCH (09:00)
[2021-06-10] MEDS: FERROUS SULFATE 325MG TABLET PO SCH ×3 (09:30→18:56)
[2021-06-10 12:00] VITALS: BP 111/59
[2021-06-10] MEDS: ACETAMINOPHEN 325MG TABLET PO PRN (13:12)
[2021-06-10 16:00] VITALS: BP 129/70
[2021-06-10 16:57] LABS: PLATELET ESTIMATE INCREASED
[2021-06-10 20:00] VITALS: BP 131/67
[2021-06-10] MEDS ORDERED: CEFEPIME 2,000 MG in DEXT 5% WATER 100 ML IV SCH (20:30)
[2021-06-10] MEDS: CEFEPIME 1,000 MG in DEXTROSE 5% WATER 50 ML IV SCH (21:48)
[2021-06-11] VITALS: BP 128/56
[2021-06-11 04:00] VITALS: BP 128/65
[2021-06-11 07:00] LABS: BASOPHILS % 0.5 % (0.0-2.0); EOSINOPHILS % 4.9 % (0.0-5.0); HEMATOCRIT. 23.6 % (36.0-48.0); HEMOGLOBIN. 7.5 g/dL (12.0-16.0); LYMPHOCYTES % 15.8 % (20.0-50.0); MEAN CORPUSCULAR HEMOGLOBIN 24.3 pg (28.0-32.0); MEAN CORPUSCULAR VOLUME 76.2 fL (81.0-99.0); MEAN PLATELET VOLUME 7.6 fl (7.4-10.4); MONOCYTES % 12.5 % (2.0-8.0); NEUTROPHILS % 66.3 % (40.0-76.0); PLATELET 478 x1000/uL (130-400); RED CELL DISTRIBUTION WIDTH 21.2 % (11.6-14.6)
[2021-06-11] MEDS: DOCUSATE SODIUM 250MG CAPSULE PO SCH (09:00)
[2021-06-11] MEDS: CEFEPIME 1,000 MG in DEXTROSE 5% WATER 50 ML IV SCH (10:06)
[2021-06-11] MEDS: FERROUS SULFATE 325MG TABLET PO SCH (10:06)
[2021-06-11] MEDS ORDERED: LEVO500T89 MT (10:07)
[2021-06-11 14:51] VITALS: BP 157/75
[2021-06-12] MEDS ORDERED: CEFEPIME 1,000 MG in DEXTROSE 5% WATER 50 ML IV SCH (09:00)
== END 2021-06-11 18:37 | disposition home health service (06) | DRG 720 ==
LOC: ER 14:05 → MICUSO 19:08 → ENRESERV 06-09 00:02 → 6WST 06-09 01:28
PROVIDERS: ADMIT Internal Medicine; ATTEND Internal Medicine
PROC: 30233N1 Transfusion of Nonautologous Red Blood Cells into Peripheral Vein, Percutaneous Approach (ICD-10-PCS; principal; 2021-06-08)
DX: A41.9 Sepsis, unspecified organism (principal); N17.0 Acute kidney failure with tubular necrosis; N39.0 Urinary tract infection, site not specified; E87.1 Hypo-osmolality and hyponatremia; D64.9 Anemia, unspecified; E66.9 Obesity, unspecified; Z20.822 Contact with and (suspected) exposure to COVID-19; Z85.51 Personal history of malignant neoplasm of bladder; Z93.3 Colostomy status; Z68.29 Body mass index [BMI] 29.0-29.9, adult
CPT/HCPCS: 36415; 71045; 80048; 80053; 81003; 83605; 84484; 85014; 85018; 85025; 85049; 85384; 86850; 86900; 86920; 87426; 93005; 99291; C1893; J0692; J2543; J7030; J7060; P9016

== ENCOUNTER 2021-07-19 14:10 | Emergency (ER) | payer OTHER ==
[~2021-07-19] VITALS: Ht 167.6 cm; Wt 77.0 kg
[~2021-07-19 14:10] MED LIST changes: -LACT1CAP78 MT; +LEVO500T89 MT; -LEVO750T46 MT; -NEOM28.37 TP; -NITR100C MT; -SULF1TAB47 MT
[2021-07-19] MEDS ORDERED: SODIUM CHLORIDE 0.9% 1,000 ML IV ONE (15:00)
[2021-07-19 15:52] LABS: BASOPHILS % 0.8 % (0.0-2.0); EOSINOPHILS % 1.9 % (0.0-5.0); LYMPHOCYTES % 12.6 % (20.0-50.0); MEAN CORPUSCULAR HEMOGLOBIN 24.1 pg (28.0-32.0); MEAN CORPUSCULAR VOLUME 74.3 fL (81.0-99.0); MEAN PLATELET VOLUME 6.9 fl (7.4-10.4); MONOCYTES % 6.5 % (2.0-8.0); NEUTROPHILS % 78.2 % (40.0-76.0); PLATELET 555 x1000/uL (130-400); RED BLOOD CELL COUNT 2.81 mill/uL (4.2-5.4); RED CELL DISTRIBUTION WIDTH 18.4 % (11.6-14.6)
[2021-07-19 15:53] LABS: PROTHROMBIN TIME 10.5 sec (9.6-11.0)
[2021-07-19 15:56] LABS: CHLORIDE 104 mEq/L (98-107)
[2021-07-19 15:58] LABS: HEMOGLOBIN. 6.8 g/dL (12.0-16.0)
[2021-07-19 15:59] LABS: HEMATOCRIT. 20.9 % (36.0-48.0)
[2021-07-19] MEDS ORDERED: CEFTRIAXONE 1 G PREMIX 50 ML IV ONE (17:45)
[2021-07-19] MEDS ORDERED: ONDANSETRON HCL 4MG/2ML INJ IV STA (18:56)
[2021-07-19] MEDS ORDERED: MORPHINE SULFATE 4 MG/ML CPJ (NOT FOR IM USE) IV STA (18:56)
[2021-07-19 19:05] LABS: CLARITY URINE CLEAR (CLEAR); COLOR URINE YELLOW (YELLOW); KETONES URINE NEGATIVE (NEGATIVE); LEUKOCYTE ESTERASE URINE 2+ (NEGATIVE); NITRITE URINE NEGATIVE (NEGATIVE); OCCULT BLOOD URINE NEGATIVE (NEGATIVE); PROTEIN URINE NEGATIVE (NEGATIVE); SPECIFIC GRAVITY URINE 1.011 (1.005-1.030); UROBILINOGEN URINE 0.2 E.U./dL (0.2-1.0)
[2021-07-19 20:00] VITALS: BP 171/76
== END 2021-07-19 20:51 | disposition short-term general hospital (02) ==
LOC: ER 14:18 → EDBEDREQ 17:09 → EDBEDREQTM 17:09 → ER 20:51 → CANBEDREQ 22:07
DX: D64.9 Anemia, unspecified (principal); R55 Syncope and collapse; N39.0 Urinary tract infection, site not specified; N17.9 Acute kidney failure, unspecified; Z20.822 Contact with and (suspected) exposure to COVID-19
CPT/HCPCS: 36415; 80053; 81003; 83880; 84484; 85025; 85610; 86850; 86900; 86901; 86920; 87077; 87086; 87186; 87426; 96361; 96365; 99291; C1893; J0696; J2270; J7030; J2405; P9016

== ENCOUNTER 2021-11-18 15:40 | Inpatient (IN) | payer OTHER ==
[~2021-11-18] VITALS: Ht 165.1 cm; Wt 76.3 kg
[~2021-11-18 15:40] MED LIST changes: -LEVO500T89 MT; +LEVO500T90 MT
[2021-11-18 19:52] LABS: BASOPHILS % 1.2 % (0.0-2.0); EOSINOPHILS % 2.9 % (0.0-5.0); LYMPHOCYTES % 22.4 % (20.0-50.0); MEAN CORPUSCULAR HEMOGLOBIN 24.7 pg (28.0-32.0); MEAN PLATELET VOLUME 6.6 fl (7.4-10.4); MONOCYTES % 9.8 % (2.0-8.0); NEUTROPHILS % 63.7 % (40.0-76.0); PLATELET 475 x1000/uL (130-400); RED BLOOD CELL COUNT 2.04 mill/uL (4.2-5.4); RED CELL DISTRIBUTION WIDTH 19.3 % (11.6-14.6)
[2021-11-18 19:57] LABS: CHLORIDE 106 mEq/L (98-107); HEMATOCRIT. 16.9 % (36.0-48.0)
[2021-11-19 01:05] LABS: CLARITY URINE CLEAR (CLEAR); COLOR URINE YELLOW (YELLOW); KETONES URINE NEGATIVE (NEGATIVE); LEUKOCYTE ESTERASE URINE 1+ (NEGATIVE); NITRITE URINE POSITIVE (NEGATIVE); OCCULT BLOOD URINE NEGATIVE (NEGATIVE); PH URINE 7.5 (4.5-8.0); PROTEIN URINE NEGATIVE (NEGATIVE); SPECIFIC GRAVITY URINE 1.004 (1.005-1.030); UROBILINOGEN URINE 0.2 E.U./dL (0.2-1.0)
[2021-11-19] MEDS ORDERED: CEFTRIAXONE 1 G PREMIX 50 ML IV ONE (04:00)
[2021-11-19] MEDS ORDERED: CEFTRIAXONE 1 G PREMIX 50 ML IV NR (06:15)
[2021-11-19] MEDS ORDERED: ACETAMINOPHEN 325MG TABLET PO PRN (08:30)
[2021-11-19] MEDS ORDERED: ONDANSETRON HCL 4MG/2ML INJ IV PRN (08:30)
[2021-11-19 08:45] VITALS: BP 138/59
[2021-11-19] MEDS: PIPERACILLIN/TAZOBACTAM 3.375 G in DEXTROSE 5% WATER 50 ML IV SCH ×3 (09:00→21:59)
[2021-11-19 11:05] LABS: HEMATOCRIT 28.2 % (36.0-48.0); HEMOGLOBIN 8.4 g/dL (12.0-16.0)
[2021-11-19 12:00] VITALS: BP 136/58
[2021-11-19] MEDS ORDERED: FERR324T4 MT (13:37)
[2021-11-19] MEDS ORDERED: OXYB5TAB17 PO (13:37)
[2021-11-19 16:00] VITALS: BP 131/54
[2021-11-19 20:00] VITALS: BP 107/55
[2021-11-19] MEDS: OXYBUTYNIN CHLORIDE 5MG TABLET PO SCH (22:07)
[2021-11-20 00:01] VITALS: BP 103/48
[2021-11-20 04:21] VITALS: BP 120/60
[2021-11-20] MEDS: PIPERACILLIN/TAZOBACTAM 3.375 G in DEXTROSE 5% WATER 50 ML IV SCH ×3 (06:12→23:44)
[2021-11-20 06:45] LABS: HEMATOCRIT. 23.7 % (36.0-48.0); HEMOGLOBIN. 7.5 g/dL (12.0-16.0); LYMPHOCYTES % 10.9 % (20.0-50.0); MEAN CORPUSCULAR HEMOGLOBIN 26.9 pg (28.0-32.0); MEAN CORPUSCULAR VOLUME 85.2 fL (81.0-99.0); MEAN PLATELET VOLUME 7.1 fl (7.4-10.4); MONOCYTES % 11.6 % (2.0-8.0); NEUTROPHILS % 72.5 % (40.0-76.0); PLATELET 427 x1000/uL (130-400); RED BLOOD CELL COUNT 2.78 mill/uL (4.2-5.4); RED CELL DISTRIBUTION WIDTH 18.9 % (11.6-14.6)
[2021-11-20 08:00] VITALS: BP 120/72
[2021-11-20] MEDS: OXYBUTYNIN CHLORIDE 5MG TABLET PO SCH ×2 (08:39→22:19)
[2021-11-20 12:00] VITALS: BP 108/58
[2021-11-20] MEDS ORDERED: LIDOCAINE HCL/PF 1% 10 MG/ML 5ML VIAL ONE (13:32)
[2021-11-20] MEDS: SODIUM CHLORIDE 0.9% 1,000 ML IV SCH (14:49)
[2021-11-20 16:00] VITALS: BP 131/1
[2021-11-20] MEDS ORDERED: VANCOMYCIN 1500MG in DEXTROSE 5% WATER 250ML IV NR (19:00)
[2021-11-20 20:00] VITALS: BP 111/56
[2021-11-20] MEDS: LORAZEPAM 1MG TABLET PO PRN (23:44)
[2021-11-21] VITALS (25 sets, daily range): BP systolic 93–133; BP diastolic 31–81
[2021-11-21] MEDS: SODIUM CHLORIDE 0.9% 1,000 ML IV SCH (05:08)
[2021-11-21] MEDS: PIPERACILLIN/TAZOBACTAM 3.375 G in DEXTROSE 5% WATER 50 ML IV SCH ×3 (05:13→21:56)
[2021-11-21 06:58] LABS: BASOPHILS % 1.2 % (0.0-2.0); EOSINOPHILS % 5.1 % (0.0-5.0); LYMPHOCYTES % 17.2 % (20.0-50.0); MEAN CORPUSCULAR HEMOGLOBIN 26.6 pg (28.0-32.0); MEAN CORPUSCULAR VOLUME 86.3 fL (81.0-99.0); MEAN PLATELET VOLUME 6.9 fl (7.4-10.4); MONOCYTES % 12.1 % (2.0-8.0); NEUTROPHILS % 64.4 % (40.0-76.0); PLATELET 389 x1000/uL (130-400); RED BLOOD CELL COUNT 2.56 mill/uL (4.2-5.4); RED CELL DISTRIBUTION WIDTH 18.6 % (11.6-14.6)
[2021-11-21 07:03] LABS: PARTIAL THROMBOPLASTIN TIME < 21.0 sec (23.4-31.0); PROTHROMBIN TIME 10.3 sec (9.6-11.0)
[2021-11-21 07:13] LABS: PHOSPHORUS 5.1 mg/dL (2.5-4.9)
[2021-11-21 08:02] LABS: HEMATOCRIT. 22.1 % (36.0-48.0); HEMOGLOBIN. 6.8 g/dL (12.0-16.0)
[2021-11-21] MEDS ORDERED: FENTANYL CITRATE/PF 50MCG/ML 2ML VIAL ONE (08:44)
[2021-11-21] MEDS ORDERED: LIDOCAINE HCL 1% 10 MG/ML 10ML VIAL ONE ×2 (09:15→09:58)
[2021-11-21] MEDS ORDERED: IOHEXOL-300 50 ML BOTTLE IV ONE (09:15)
[2021-11-21] MEDS ORDERED: FENTANYL CITRATE/PF 50MCG/ML 2ML VIAL IV ONE (10:30)
[2021-11-21] MEDS: OXYBUTYNIN CHLORIDE 5MG TABLET PO SCH ×2 (11:37→20:20)
[2021-11-21] MEDS ORDERED: VANCOMYCIN 500MG PREMIX 100 ML IV SCH (21:00)
[2021-11-21] MEDS: LORAZEPAM 1MG TABLET PO PRN (21:56)
[2021-11-22] VITALS: BP 115/66
[2021-11-22 01:33] LABS: HEMATOCRIT 23.2 % (36.0-48.0); HEMOGLOBIN 7.3 g/dL (12.0-16.0)
[2021-11-22 04:00] VITALS: BP 127/58
[2021-11-22] MEDS: PIPERACILLIN/TAZOBACTAM 3.375 G in DEXTROSE 5% WATER 50 ML IV SCH ×3 (05:37→21:39)
[2021-11-22 08:24] VITALS: BP 113/95
[2021-11-22] MEDS: OXYBUTYNIN CHLORIDE 5MG TABLET PO SCH ×2 (08:30→20:58)
[2021-11-22 09:40] LABS: BASOPHILS % 1.3 % (0.0-2.0); EOSINOPHILS % 3.8 % (0.0-5.0); HEMATOCRIT. 25.5 % (36.0-48.0); HEMOGLOBIN. 8.1 g/dL (12.0-16.0); LYMPHOCYTES % 13.2 % (20.0-50.0); MEAN CORPUSCULAR HEMOGLOBIN 27.2 pg (28.0-32.0); MEAN CORPUSCULAR VOLUME 85.1 fL (81.0-99.0); MEAN PLATELET VOLUME 7.2 fl (7.4-10.4); MONOCYTES % 12.1 % (2.0-8.0); NEUTROPHILS % 69.6 % (40.0-76.0); PLATELET 378 x1000/uL (130-400); RED BLOOD CELL COUNT 2.99 mill/uL (4.2-5.4); RED CELL DISTRIBUTION WIDTH 17.9 % (11.6-14.6)
[2021-11-22 10:04] LABS: PHOSPHORUS 4.4 mg/dL (2.5-4.9)
[2021-11-22 11:59] VITALS: BP 124/73
[2021-11-22 15:39] VITALS: BP 101/50
[2021-11-22 20:00] VITALS: BP 109/59
[2021-11-22] MEDS ORDERED: VANCOMYCIN 750MG PREMIX 150 ML IV NR (20:00)
[2021-11-22] MEDS: LORAZEPAM 1MG TABLET PO PRN (21:38)
[2021-11-23] VITALS: BP 112/51
[2021-11-23 04:00] VITALS: BP 120/51
[2021-11-23] MEDS: SODIUM CHLORIDE 0.9% 1,000 ML IV SCH (04:36)
[2021-11-23] MEDS: PIPERACILLIN/TAZOBACTAM 3.375 G in DEXTROSE 5% WATER 50 ML IV SCH (05:33)
[2021-11-23 07:56] VITALS: BP 116/56
[2021-11-23] MEDS: OXYBUTYNIN CHLORIDE 5MG TABLET PO SCH (08:22)
[2021-11-23 09:28] VITALS: BP 116/57
[2021-11-23 11:33] VITALS: BP 124/61
[2021-11-23] MEDS ORDERED: VANCOMYCIN 750MG PREMIX 150 ML IV NR (21:00)
== END 2021-11-23 12:35 | disposition home or self-care (01) | DRG 463 ==
LOC: ER 15:40 → MICUSO 11-19 06:22 → 8WST 11-19 07:11
PROVIDERS: ADMIT Internal Medicine; ATTEND Internal Medicine
PROC: 02HV33Z Insertion of Infusion Device into Superior Vena Cava, Percutaneous Approach (ICD-10-PCS; 2021-11-20)
PROC: B5181ZA Fluoroscopy of Superior Vena Cava using Low Osmolar Contrast, Guidance (ICD-10-PCS; 2021-11-20)
PROC: 0T25X0Z Change Drainage Device in Kidney, External Approach (ICD-10-PCS; principal; 2021-11-21)
PROC: 30243N1 Transfusion of Nonautologous Red Blood Cells into Central Vein, Percutaneous Approach (ICD-10-PCS; 2021-11-21)
DX: N39.0 Urinary tract infection, site not specified (principal); E44.0 Moderate protein-calorie malnutrition; R78.81 Bacteremia; D64.9 Anemia, unspecified; N18.30 Chronic kidney disease, stage 3 unspecified; N13.8 Other obstructive and reflux uropathy; Z68.28 Body mass index [BMI] 28.0-28.9, adult; Z82.49 Family history of ischemic heart disease and other diseases of the circulatory system; Z85.51 Personal history of malignant neoplasm of bladder; Z43.6 Encounter for attention to other artificial openings of urinary tract; B95.7 Other staphylococcus as the cause of diseases classified elsewhere
CPT/HCPCS: 36415; 36573; 50435; 71045; 76770; 80048; 80053; 80202; 81003; 83735; 84100; 84145; 84484; 85014; 85018; 85025; 86850; 86900; 86920; 87070; 87077; 87186; 87426; 93005; 99152; 99153; 99291; C1725; C1729; C1760; C1769; C9803; J0696; J2543; J3010; J3370; J3490; J7030; J7060; P9016; Q9967; G0500

== ENCOUNTER 2022-01-30 15:58 | Emergency (ER) | payer OTHER ==
[~2022-01-30] VITALS: Ht 165.1 cm; Wt 64.0 kg
[~2022-01-30 15:58] MED LIST changes: +FERR324T4 MT; -LEVO500T90 MT; +OXYB5TAB17 PO
[2022-01-30 16:02] VITALS: BP 166/81
[2022-01-30 16:58] LABS: BASOPHILS % 1.1 % (0.0-2.0); EOSINOPHILS % 1.6 % (0.0-5.0); HEMATOCRIT. 28.8 % (36.0-48.0); HEMOGLOBIN. 9.2 g/dL (12.0-16.0); MEAN CORPUSCULAR HEMOGLOBIN 26.7 pg (28.0-32.0); MEAN CORPUSCULAR VOLUME 83.6 fL (81.0-99.0); MEAN PLATELET VOLUME 7.8 fl (7.4-10.4); MONOCYTES % 6.7 % (2.0-8.0); NEUTROPHILS % 79.6 % (40.0-76.0); PLATELET 423 x1000/uL (130-400); RED BLOOD CELL COUNT 3.45 mill/uL (4.2-5.4); RED CELL DISTRIBUTION WIDTH 14.1 % (11.6-14.6)
[2022-01-30 17:04] LABS: CHLORIDE 102 mEq/L (98-107)
[2022-01-30 17:37] LABS: PROTHROMBIN TIME 10.5 sec (9.6-11.0)
== END 2022-01-30 18:29 | disposition home or self-care (01) ==
LOC: ER 15:58
DX: C67.9 Malignant neoplasm of bladder, unspecified (principal); N36.8 Other specified disorders of urethra; D64.9 Anemia, unspecified
CPT/HCPCS: 36415; 80053; 85025; 86850; 86900; 99283

== ENCOUNTER 2022-03-13 15:38 | Emergency (ER) | payer MEDICARE, OTHER ==
[~2022-03-13] VITALS: Ht 162.6 cm; Wt 73.0 kg
[2022-03-13 21:20] LABS: CLARITY URINE CLEAR (CLEAR); COLOR URINE YELLOW (YELLOW); KETONES URINE NEGATIVE (NEGATIVE); LEUKOCYTE ESTERASE URINE 3+ (NEGATIVE); NITRITE URINE POSITIVE (NEGATIVE); OCCULT BLOOD URINE 1+ (NEGATIVE); PROTEIN URINE TRACE (NEGATIVE); SPECIFIC GRAVITY URINE 1.006 (1.005-1.030); UROBILINOGEN URINE 0.2 E.U./dL (0.2-1.0)
[2022-03-13 21:41] LABS: EOSINOPHILS % 4.3 % (0.0-5.0); HEMATOCRIT. 33.9 % (36.0-48.0); HEMOGLOBIN. 10.7 g/dL (12.0-16.0); LYMPHOCYTES % 15.6 % (20.0-50.0); MEAN CORPUSCULAR HEMOGLOBIN 25.3 pg (28.0-32.0); MEAN CORPUSCULAR VOLUME 80.4 fL (81.0-99.0); MEAN PLATELET VOLUME 7.7 fl (7.4-10.4); MONOCYTES % 8.1 % (2.0-8.0); PLATELET 501 x1000/uL (130-400); RED BLOOD CELL COUNT 4.22 mill/uL (4.2-5.4); RED CELL DISTRIBUTION WIDTH 14.9 % (11.6-14.6)
[2022-03-13 21:49] LABS: CHLORIDE 104 mEq/L (98-107)
[2022-03-13] MEDS ORDERED: BACITRACIN ZINC OINT UDPKT TOP ONE (23:15)
[2022-03-13] MEDS ORDERED: LIDOCAINE HCL/PF 1% 10 MG/ML 5ML VIAL INFIL ONE (23:15)
[2022-03-14] MEDS ORDERED: PIPERACILLIN/TAZ 3.375G PREMIX 50 ML IV NR (02:15)
[2022-03-14 04:22] LABS: PROTHROMBIN TIME 10.6 sec (9.6-11.0)
[2022-03-14] MEDS ORDERED: LIDOCAINE HCL/PF 1% 10 MG/ML 5ML VIAL ONE (08:33)
[2022-03-14] MEDS ORDERED: IOHEXOL-300 50 ML BOTTLE IV ONE (08:34)
[2022-03-14 10:00] VITALS: BP 155/68
== END 2022-03-14 11:16 | disposition home or self-care (01) ==
LOC: ER 15:38 → CANBEDREQ 03-14 17:53
DX: T83.022A Displacement of nephrostomy catheter, initial encounter (principal); X58.XXXA Exposure to other specified factors, initial encounter; C67.9 Malignant neoplasm of bladder, unspecified; C79.9 Secondary malignant neoplasm of unspecified site; D64.9 Anemia, unspecified; Z90.49 Acquired absence of other specified parts of digestive tract; Z20.822 Contact with and (suspected) exposure to COVID-19
CPT/HCPCS: 36415; 50432; 74176; 80053; 81003; 85025; 85610; 87077; 87086; 87186; 87426; 96365; 99285; C1725; C1729; C1760; C1769; C9803; J2543; J3490; Q9967

== ENCOUNTER 2022-03-29 11:47 | Emergency (ER) | payer MEDICARE, OTHER ==
[~2022-03-29] VITALS: Ht 167.6 cm; Wt 80.0 kg
[2022-03-29 12:22] VITALS: BP 186/83
[2022-03-29 13:06] LABS: BASOPHILS % 0.8 % (0.0-2.0); EOSINOPHILS % 2.8 % (0.0-5.0); HEMATOCRIT. 33.2 % (36.0-48.0); HEMOGLOBIN. 10.6 g/dL (12.0-16.0); LYMPHOCYTES % 11.6 % (20.0-50.0); MEAN CORPUSCULAR HEMOGLOBIN 25.2 pg (28.0-32.0); MEAN CORPUSCULAR VOLUME 78.8 fL (81.0-99.0); MEAN PLATELET VOLUME 7.4 fl (7.4-10.4); MONOCYTES % 7.7 % (2.0-8.0); NEUTROPHILS % 77.1 % (40.0-76.0); PLATELET 476 x1000/uL (130-400); RED BLOOD CELL COUNT 4.21 mill/uL (4.2-5.4); RED CELL DISTRIBUTION WIDTH 15.5 % (11.6-14.6)
[2022-03-29 13:10] LABS: CHLORIDE 102 mEq/L (98-107)
== END 2022-03-29 17:25 | disposition left against medical advice (07) ==
LOC: ER 11:54
DX: Z53.21 Procedure and treatment not carried out due to patient leaving prior to being seen by health care provider (principal); Z43.6 Encounter for attention to other artificial openings of urinary tract; D64.9 Anemia, unspecified; Z85.51 Personal history of malignant neoplasm of bladder
CPT/HCPCS: 36415; 80053; 85025; 99283